=== PATIENT | male | born 1945 | race Caucasian/White ===

== ENCOUNTER 2016-08-06 16:19 | Emergency (ER) | payer MEDICARE ==
[2016-08-06 16:39] VITALS: BP 144/80
--- NOTE | 2016-08-06 16:55 | UC ---
Throat Pain/Nasal Oli HPI - HPI Summary HPI Summary: comp[laint of cough, nasal congestion, sore throat that started approx 1 week ago coughing with lots of phlegm sinus pressure in his face and forehead ears feel full and feel itchy feel fatigued difficult to sleep d/t coughing denies headaches denies fever na d chill denies edema, chest pain, taking tussin DM without relief - History of Current Complaint Chief Complaint: UCRespiratory Stated Complaint: CHEST/HEAD CONGESTION,COUGH Time Seen by Provider: 08/06/16 16:33 Hx Obtained From: Patient - Allergies/Home Medications Allergies/Adverse Reactions: Allergies Allergy/AdvReac Type Severity Reaction Status Date / Time No Known Allergies Allergy Verified 08/06/16 16:39 Home Medications: Home Medications GuaiFENesin DM* [Robitussin DM*] 10 ml PO Q6H PRN 08/06/16 [History Confirmed ] PMH/Surg Hx/FS Hx/Imm Hx Previously Healthy: Yes Cardiovascular History Of: Reports: Cardiac Disorders - BLOCKED ARTERIES, Pacemaker/ICD - Surgical History Surgical History: Yes Surgery Procedure, Year, and Place: Pacemaker Placement 07/18/12. Tonsillectomy at age 14. Removal of bladder CA. PARTIAL REMOVAL OF RIGHT KIDNEY. CARDIAC STENTS - Family History Known Family History: Negative: Cardiac Disease, Hypertension, Diabetes - Social History Occupation: Retired Lives: With Family Alcohol Use: None Substance Use Type: None Smoking Status (MU): Former Smoker Have You Smoked in the Last Year: No When Did the Patient Quit Smoking/Using Tobacco: 40 yrs - Immunization History Most Recent Tetanus Shot: Within 10 years Review of Systems Constitutional: Negative Skin: Negative ENT: Ear Ache, Nasal Discharge Respiratory: Cough Cardiovascular: Negative Gastrointestinal: Negative Genitourinary: Negative Motor: Negative Neurovascular: Negative Musculoskeletal: Negative Neurological: Negative Psychological: Negative All Other Systems Reviewed And Are Negative: Yes Physical Exam Triage Information Reviewed: Yes Appearance: No Pain Distress, Well-Nourished Vital Signs: Initial Vital Signs Temp 97.9 F 08/06/16 16:31 Pulse 66 08/06/16 16:31 Resp 22 08/06/16 16:31 BP 144/80 08/06/16 16:31 Pulse Ox 95 08/06/16 16:31 Vital Signs Reviewed: Yes Eyes: Positive: Conjunctiva Clear ENT: Positive: Pharyngeal erythema, Nasal congestion, TMs normal Neck: Positive: No Lymphadenopathy Respiratory: Positive: No respiratory distress, Rhonchi - BLL, Wheezing Cardiovascular: Positive: RRR, No Murmur, Pulses Normal Abdomen Description: Positive: Nontender, Soft Bowel Sounds: Positive: Present Musculoskeletal: Positive: No Edema Neurological Exam: Normal Psychological Exam: Normal Skin Exam: Normal Re-Evaluation - Re-Evaluation First Eval Re-Evaluation Time: 17:30 Change: Improved Comment: less wheezing Throat Pain/Nasal Course/Dx - Differential Dx/Diagnosis Differential Diagnosis/HQI/PQRI: Sinusitis, URI, Other - pneumonia Provider Diagnoses: bronchitis Discharge - Discharge Plan Condition: Stable Disposition: HOME Prescriptions: Albuterol HFA INHALER* [Ventolin HFA Inhaler*] 2 puff INH Q4H PRN #1 mdi PRN Reason: Wheezing DOXYcycline CAP(*) [DOXYcycline 100MG CAP(*)] 100 mg PO BID #20 cap Spacer/Aerosol-Holding Chamber [Aerochamber Mv] 1 mis XX Q4HR #1 mis Patient Education Materials: Acute Bronchitis (ED) Additional Instructions: Please take antibiotic as directed Use your albuterol inhaler every 4-6 hours when needed for wheezing, shortness of breath or uncontrolled coughing. Increase fluids and rest Take acetaminophen or ibuprofen for fever or pain Please review your discharge instructions. If your symptoms do not improve please call your primary care provider or return to urgent care.
[2016-08-06] MEDS ORDERED: Albuterol/Ipratropium NEB.SOL* Albuterol 2.5 MG/Ipratropium 0.5 MG 3 ML INH ONE (16:57)
--- NOTE | 2016-08-06 17:47 | RAD ---
INDICATION: Short of breath COMPARISON: June 28, 2013 TECHNIQUE: PA and lateral dual-energy views were obtained. FINDINGS: Bones/Soft Tissues: There are no acute bony findings. There is left-sided cardiac pacemaker Cardiomediastinal: The cardiomediastinal silhouette is normal. Lungs: There are no infiltrates. Pleura: There are no pleural effusions. Other: None IMPRESSION: CARDIAC PACEMAKER. LUNGS CLEAR.
== END 2016-08-06 18:02 | disposition home or self-care (01) ==
LOC: UCCORT 16:19
DX: J40 Bronchitis, not specified as acute or chronic (principal); Z95.0 Presence of cardiac pacemaker; Z95.5 Presence of coronary angioplasty implant and graft; Z85.51 Personal history of malignant neoplasm of bladder; Z87.891 Personal history of nicotine dependence
CPT/HCPCS: 71020; 99212; A9270-GY; G0463

== ENCOUNTER 2017-06-01 08:51 | Emergency (ER) | payer MEDICARE ==
[2017-06-01 09:20] LABS: ABS Basophils 0.1 10^3/ul (0-0.2); ABS Eosinophils 0.2 10^3/ul (0-0.6); ABS Lymphocytes 1.1 10^3/ul (1.0-4.8); ABS Monocytes 0.5 10^3/ul (0-0.8); ABS Nucleated RBC 0.01 10^3/ul; Eosinophil % 3.3 % (0-6); Hematocrit 46 % (42-52); Hemoglobin 16.4 g/dl (14.0-18.0); Lymphocyte % 18.6 % (25-47); Mean Corpuscular HGB Conc 35 g/dl (31-36); Mean Corpuscular Hemoglobin 31 pg (27-31); Mean Corpuscular Volume 87 fL (80-94); Mean Platelet Volume 7 um3 (7.4-10.4); Nucleated Red Blood Cells % 0.1; Platelet Count 196 10^3/ul (150-450); Red Blood Count 5.33 10^6/ul (4.0-5.4); Red Cell Distribution Width 13 % (10.5-15); White Blood Count 5.8 10^3/ul (3.5-10.8)
[2017-06-01 09:27] LABS: INR 1.08 (0.77-1.02)
--- NOTE | 2017-06-01 09:37 | RAD ---
INDICATION: Right fifth finger injury. TECHNIQUE: 3 views of the right fifth finger were obtained. FINDINGS: There is diffuse soft tissue swelling. No fracture is seen. There is mild/moderate osteoarthritic change in the proximal and distal interphalangeal joints. IMPRESSION: SOFT TISSUE SWELLING, NO FRACTURE IS SEEN.
[2017-06-01 09:42] LABS: EGFR Non-African American 79.9 (>60)
[2017-06-01] MEDS ORDERED: Iodixanol* (CONTRAST) 320 MG/ML 100 ML SDV IV ONE (10:30)
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
[2017-06-01 11:07] LABS: Urine Appearance Clear; Urine Blood 1+ (Negative); Urine Color Yellow; Urine Ketones Negative (Negative); Urine Protein Negative (Negative); Urine Specific Gravity 1.005 (1.010-1.030); Urine Urobilinogen Negative (Negative)
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
[2017-06-01 12:35] VITALS: BP 128/85
== END 2017-06-01 12:53 | disposition home or self-care (01) ==
LOC: ED 08:51
DX: S20.211A Contusion of right front wall of thorax, initial encounter (principal); S63.501A Unspecified sprain of right wrist, initial encounter; S60.052A Contusion of left little finger without damage to nail, initial encounter; V43.52XA Car driver injured in collision with other type car in traffic accident, initial encounter; J98.11 Atelectasis; Z87.891 Personal history of nicotine dependence
CPT/HCPCS: 36415; 70450; 71260; 73140; 74177; 80053; 81003; 81015; 83605; 85025; 85610; 86850; 86900; 86901; 99283; Q9967

== ENCOUNTER 2020-05-13 07:41 | Observation (INO) ==
[~2020-05-13 07:41] MED LIST: Buffered Lidocaine 1% SYRIN 1 ml INTRADERM ONE; Dexamethasone IV 4 MG/ML VIAL 1 ml VIAL IV SLOW PU ONE; Famotidine IV 10 MG/ML 2 ml VIAL (20 mg) IV ONE; Lactated Ringers 1000 ml BAG 1,000 ML IV SCH
[2020-05-13] MEDS ORDERED: Dexamethasone IV 4 MG/ML VIAL 1 ml VIAL ONE (08:05)
[2020-05-13] MEDS ORDERED: Famotidine IV 10 MG/ML 2 ml VIAL (20 mg) ONE ×2 (08:06→09:00)
[2020-05-13] MEDS ORDERED: cefTRIAXone 2 GM ADDV.VIAL ONE (08:06)
[2020-05-13] MEDS ORDERED: Buffered Lidocaine 1% SYRIN 1 ml INTRADERM ONE (08:06)
[2020-05-13] MEDS ORDERED: DiMENhydriNATE IV 50 mg/ml 1 ml VIAL IV PUSH PRN (08:52)
[2020-05-13] MEDS ORDERED: Naloxone 0.4 mg VIAL 0.4 mg/ml 1 ml VIAL IV PRN (08:52)
[2020-05-13] MEDS ORDERED: fentaNYL 100 mcg/2 ml 50 MCG/ML VIAL IV PRN (08:52)
[2020-05-13] MEDS ORDERED: HYDROcodone/ACETAMIN 5/325 mg TAB PO PRN (08:52)
[2020-05-13] MEDS ORDERED: Midazolam 5 mg/5 ml VIAL 1 mg/ml 5 ml VIAL (5 mg) ONE (09:04)
[2020-05-13] MEDS ORDERED: fentaNYL 100 mcg/2 ml 50 MCG/ML VIAL ONE (09:04)
[2020-05-13] MEDS ORDERED: Lidocaine 2% PF 5 ML VIAL ONE (09:36)
[2020-05-13] MEDS ORDERED: Propofol 10 MG/ML 20 ML BTL ONE (09:36)
[2020-05-13] MEDS ORDERED: Furosemide 20 mg/2 ml IV VIAL ONE (10:18)
[2020-05-13] MEDS ORDERED: Lactated Ringers 1000 ml BAG 1,000 ML IV SCH (22:50)
[2020-05-14] MEDS ORDERED: cefTRIAXone 2 GM ADDV.VIAL 2 GM in NS 0.9% 100 ml BAG 100 ML IV ONE (08:00)
[2020-05-14 08:05] VITALS: BP 149/67
[2020-05-14 10:19] LABS: BUN/Creatinine Ratio 15.6 (8-20); Calcium 9.3 mg/dL (8.6-10.3); EGFR African American 119.2 (>60); EGFR Non-African American 98.5 (>60); Potassium 4.5 mmol/L (3.5-5.0)
== END 2020-05-14 11:10 | disposition home or self-care (01) ==
LOC: OR 07:41 → SSU 07:41
PROVIDERS: ADMIT Urology; ATTEND Urology